=== PATIENT | female | born 1945 | race Caucasian/White ===

== ENCOUNTER → 2020-02-01 | Outpatient (CLI) | payer OTHER ==
[~2020-02-01] MED LIST: ASPIRIN325 PO; BETIMOL 0.0.25 %/11 OP; FISH OIL 1,0001 EAC5 PO; FOLIC ACID1 MG PO; HYDROCODON-ACE1 EAC7 PO; LIPITOR10 MG PO; METHOTREXATE 22.5 MG PO; MULTIVITAMINS PO; QUINU10 PD PO; TOPROL XL50 MG PO; VITAMIN D31000 UNI2 PO
== END ==
LOC: SJCVC 16:09
PROVIDERS: ATTEND Internal Medicine Cardiovascular Disease
DX: R94.31 Abnormal electrocardiogram [ECG] [EKG] (principal); I25.729 Atherosclerosis of autologous artery coronary artery bypass graft(s) with unspecified angina pectoris; I10 Essential (primary) hypertension; E78.00 Pure hypercholesterolemia, unspecified; I73.9 Peripheral vascular disease, unspecified; I45.10 Unspecified right bundle-branch block

== ENCOUNTER → 2020-10-25 | Outpatient (CLI) | payer OTHER | LOC: SJCVCIMAG 10:11 | PROVIDERS: ATTEND Internal Medicine Cardiovascular Disease | DX: I25.10 Atherosclerotic heart disease of native coronary artery without angina pectoris (principal); I10 Essential (primary) hypertension; E78.5 Hyperlipidemia, unspecified; Z95.1 Presence of aortocoronary bypass graft ==